=== PATIENT | male | born 1980 | race Caucasian/White ===

== ENCOUNTER → 2021-10-02 | Outpatient (CLI) | payer OTHER ==
--- NOTE | 2021-10-02 08:34 | Diagnostic Imaging Report ---
PROCEDURE: US Gallbladder. TECHNIQUE: Multiple real-time grayscale images were obtained over the right upper quadrant in various projections. INDICATION: Right upper quadrant pain The liver, gallbladder and bile ducts are normal. Pancreas is obscured by bowel gas. No abnormality of the aorta or IVC is seen. Right kidney is normal. There is no ascites. IMPRESSION: No acute abnormality is seen. Dictated by: Dictated on workstation # [id number]
== END ==
LOC: RAD 08:00
PROVIDERS: ATTEND Family Medicine
DX: R10.11 Right upper quadrant pain (principal)
CPT/HCPCS: 76705

== ENCOUNTER 2022-03-11 08:37 | Emergency (ER) | payer OTHER ==
[~2022-03-11] VITALS: Ht 182 cm; Wt 117.0 kg
[2022-03-11 09:01] LABS: BASOPHILS # (AUTO) 0.1 10^3/uL (0.0-0.1); BASOPHILS % (AUTO) 1 % (0-10); EOSINOPHILS # (AUTO) 0.2 10^3/uL (0.0-0.3); EOSINOPHILS % (AUTO) 3 % (0-10); HEMATOCRIT 41 % (40-54); HEMOGLOBIN 14.7 g/dL (13.3-17.7); LYMPHOCYTES % (AUTO) 31 % (12-44); MEAN CORPUSCULAR HEMOGLOBIN 29 pg (25-34); MEAN CORPUSCULAR HGB CONC 36 g/dL (32-36); MEAN CORPUSCULAR VOLUME 81 fL (80-99); MEAN PLATELET VOLUME 9.6 fL (9.0-12.2); MONOCYTES # (AUTO) 0.5 10^3/uL (0.0-1.0); MONOCYTES % (AUTO) 8 % (0-12); NEUTROPHILS # (AUTO) 3.8 10^3/uL (1.8-7.8); NEUTROPHILS % (AUTO) 57 % (42-75); PLATELET COUNT 214 10^3/uL (130-400); WHITE BLOOD COUNT 6.6 10^3/uL (4.3-11.0)
[2022-03-11 09:10] LABS: ALBUMIN 4.4 GM/DL (3.2-4.5)
[2022-03-11 09:11] LABS: POTASSIUM 4.2 MMOL/L (3.6-5.0)
[2022-03-11 09:12] LABS: CALCIUM 9.4 MG/DL (8.5-10.1)
[2022-03-11 09:13] LABS: TOTAL PROTEIN 7.2 GM/DL (6.4-8.2)
[2022-03-11 09:14] LABS: INR 0.9 (0.8-1.4); PROTHROMBIN TIME PATIENT 12.7 SEC (12.2-14.7)
[2022-03-11 09:15] LABS: BILIRUBIN,TOTAL 0.5 MG/DL (0.1-1.0)
[2022-03-11 09:17] LABS: CREATININE SERUM 0.87 MG/DL (0.60-1.30)
[2022-03-11 09:20] LABS: MAGNESIUM 2.1 MG/DL (1.6-2.4)
--- NOTE | 2022-03-11 09:26 | Diagnostic Imaging Report ---
INDICATION: Left-sided chest pain. FINDINGS: Single view of the chest demonstrates clear lungs bilaterally. The heart is normal. There is no pneumothorax but osseous structures normal. IMPRESSION: Negative chest. Dictated by: Dictated on workstation # [id number]
[2022-03-11] MEDS ORDERED: KETOROLAC 30 MG/ML VIAL IVP ONE (09:30)
[2022-03-11] MEDS ORDERED: ASPIRIN 81 MG CHEW (CHILDREN'S ASA) PO ONE (09:30)
--- NOTE | 2022-03-11 09:41 | ED Chest Pain ---
General Chief Complaint: Chest Pain Stated Complaint: L SIDE PAIN / CHEST PAIN Nursing Triage Note: ARRIVED VIA AMB TO ROOM 06 WITH COMPLAINTS OF OFF AND ON LEFT SIDED CHEST PAIN STARTING AT 1800 YESTERDAY. Source: patient Exam Limitations: no limitations History of Present Illness Date Seen by Provider: March 11, 2022 Time Seen by Provider: 08:49 Initial Comments This 42-year-old gentleman presents to the emergency room with complaints of multiple episodes of chest pain that starts as a sharp pain in the left axilla and radiates around through the pectoralis region toward the center of his chest. He also has noted a tight feeling in his left lateral posterior neck. He recently kayak several miles and then also hit and threw baseballs for youth baseball practice. He first noticed the pain last night about 1800 when he was lifting a bucket of balls out of the vehicle. Pain lasted less than a minute and was rated as a 7 or 8. He had a second episode last night while sitting on the couch around 2100. Pain resolved and he went to bed. He had a third episode of similar pain while sitting at his desk at work this morning at approximately 0 800. He denies any chest or axilla pain at this time. He complains of a very minimal discomfort in the left lateral posterior neck. He denies any associated symptoms such as shortness of breath, lightheadedness, fever, cough, diaphoresis, nausea, etc. He has no known history of heart disease. He does have risk factors including hypertension, sleep apnea, obesity, former smoking history (10 years ago), and a family history. His primary care provider is Dr. FUENTES who referred him to the ER. He also reports some intermittent issues with right upper quadrant pain. He had a gallbladder ultrasound in September 2021 that was unremarkable. This pain does not seem to be contributing to the issues bringing him to the ER today. Allergies and Home Medications Allergies Coded Allergies: silicone (Verified Adverse Reaction, Mild, Rash, 03/11/22) Skin sensitivity to silicon on CPAP mask Patient Home Medication List Home Medication List Reviewed: Yes Review of Systems Review of Systems Constitutional: no symptoms reported EENTM: No Symptoms Reported Respiratory: No Symptoms Reported Cardiovascular: See HPI Gastrointestinal: See HPI Genitourinary: No Symptoms Reported Musculoskeletal: no symptoms reported Skin: no symptoms reported Psychiatric/Neurological: No Symptoms Reported Endocrine: No Symptoms Reported Hematologic/Lymphatic: No Symptoms Reported Past Babnmhy-Tjxlfr-Pglpsi Hx Patient Social History Tobacco Use?: No Smoking Status: Former Smoker Smokeless Tobacco Frequency: Former User Substance use?: No Alcohol Use?: Yes Alcohol Frequency: Once in a while Immunizations Up To Date Second COVID19 Vaccination Black: UNKNOWN COVID19 Vaccine Apiculturist: NICK Past Medical History Surgeries: Yes (Humphrey teeth) Respiratory: Yes Sleep Apnea Cardiac: Yes Hypertension Neurological: No Genitourinary: No Gastrointestinal: Yes (Chronic right upper quadrant abdominal pain) Musculoskeletal: No Endocrine: No HEENT: No Cancer: No Psychosocial: No Integumentary: No Family Medical History Reviewed and Corrections made Heart Disease, CAD Under 55 Years Old Physical Exam Vital Signs Vital Signs - First Documented 03/11/22 08:37 Temp 36.3 Pulse 72 Resp 16 B/P (MAP) 134/75 (94) Pulse Ox 96 O2 Delivery Room Air Capillary Refill : Less Than 3 Seconds Height, Weight, BMI Height: '" Weight: lbs. oz. kg; 35.00 BMI Method: General Appearance: No Apparent Distress, WD/WN, Obese HEENT: PERRL/EOMI, Normal ENT Inspection Neck: Normal Inspection; No JVD Respiratory: Lungs Clear, Normal Breath Sounds, No Accessory Muscle Use, No Respiratory Distress Cardiovascular: Regular Rate, Rhythm, No Edema, No Murmur Gastrointestinal: Normal Bowel Sounds, Non Tender, Soft; No Distended Extremity: Normal Inspection, Non Tender, No Calf Tenderness, No Pedal Edema Neurologic/Psychiatric: Alert, Oriented x3, No Motor/Sensory Deficits, Normal Mood/Affect Skin: Normal Color, Warm/Dry Progress/Results/Core Measures Results/Orders Lab Results Laboratory Tests Test 03/11/22 08:57 03/11/22 11:58 Range/Units White Blood Count 6.6 4.3-11.0 10^3/uL Red Blood Count 5.13 4.30-5.52 10^6/uL Hemoglobin 14.7 13.3-17.7 g/dL Hematocrit 41 40-54 % Mean Corpuscular Volume 81 80-99 fL Mean Corpuscular Hemoglobin 29 25-34 pg Mean Corpuscular Hemoglobin Concent 36 32-36 g/dL Red Cell Distribution Width 12.2 10.0-14.5 % Platelet Count 214 130-400 10^3/uL Mean Platelet Volume 9.6 9.0-12.2 fL Immature Granulocyte % (Auto) 0 % Neutrophils (%) (Auto) 57 42-75 % Lymphocytes (%) (Auto) 31 12-44 % Monocytes (%) (Auto) 8 0-12 % Eosinophils (%) (Auto) 3 0-10 % Basophils (%) (Auto) 1 0-10 % Neutrophils # (Auto) 3.8 1.8-7.8 10^3/uL Lymphocytes # (Auto) 2.0 1.0-4.0 10^3/uL Monocytes # (Auto) 0.5 0.0-1.0 10^3/uL Eosinophils # (Auto) 0.2 0.0-0.3 10^3/uL Basophils # (Auto) 0.1 0.0-0.1 10^3/uL Immature Granulocyte # (Auto) 0.0 0.0-0.1 10^3/uL Erythrocyte Sedimentation Rate 8 0-15 MM/HR Prothrombin Time 12.7 12.2-14.7 SEC INR Comment 0.9 0.8-1.4 Activated Partial Thromboplast Time 27 24-35 SEC Sodium Level 138 135-145 MMOL/L Potassium Level 4.2 3.6-5.0 MMOL/L Chloride Level 103 98-107 MMOL/L Carbon Dioxide Level 25 21-32 MMOL/L Anion Gap 10 5-14 MMOL/L Blood Urea Nitrogen 16 7-18 MG/DL Creatinine 0.87 0.60-1.30 MG/DL Estimat Glomerular Filtration Rate 110 BUN/Creatinine Ratio 18 Glucose Level 102 70-105 MG/DL Calcium Level 9.4 8.5-10.1 MG/DL Corrected Calcium 9.1 8.5-10.1 MG/DL Magnesium Level 2.1 1.6-2.4 MG/DL Total Bilirubin 0.5 0.1-1.0 MG/DL Aspartate Amino Transf (AST/SGOT) 20 5-34 U/L Alanine Aminotransferase (ALT/SGPT) 29 0-55 U/L Alkaline Phosphatase 58 40-136 U/L Myoglobin 31.1 10.0-92.0 NG/ML Troponin I < 0.028 < 0.028 <0.028 NG/ML C-Reactive Protein High Sensitivity 0.74 H 0.00-0.50 MG/DL Total Protein 7.2 6.4-8.2 GM/DL Albumin 4.4 3.2-4.5 GM/DL My Orders Orders - ALANIS WATT MD Ekg Tracing (03/11/22 08:42) Cbc With Automated Diff (03/11/22 08:48) Magnesium (03/11/22 08:48) Chest 1 View, Ap/Pa Only (03/11/22 08:48) Ekg Tracing (03/11/22 08:48) Comprehensive Metabolic Panel (03/11/22 08:48) Myoglobin Serum (03/11/22 08:48) Protime With Inr (03/11/22 08:48) Partial Thromboplastin Time (03/11/22 08:48) O2 (03/11/22 08:48) Monitor-Rhythm Ecg Trace Only (03/11/22 08:48) Ed Iv/Invasive Line Start (03/11/22 08:48) Troponin I Bryan (03/11/22 08:48) Ekg Tracing (03/11/22 09:26) Troponin I Bryan (03/11/22 12:00) Ketorolac Injection (Toradol Injection) (03/11/22 09:30) Aspirin Chewable Tablet (Baby Aspirin Ch (03/11/22 09:30) Hs C Reactive Protein (03/11/22 09:30) Erythrocyte Sedimentation Rate (03/11/22 09:30) Medications Given in ED Current Medications Medications Dose Ordered Sig/Brian Route Start Time Stop Time Status Last Admin Dose Admin Aspirin 324 mg ONCE ONCE PO 03/11/22 09:30 03/11/22 09:31 DC 03/11/22 09:44 324 MG Vital Signs/I&O 03/11/22 03/11/22 08:37 13:10 Temp 36.3 Pulse 72 68 Resp 16 16 B/P (MAP) 134/75 (94) 138/88 Pulse Ox 96 98 O2 Delivery Room Air Room Air Blood Pressure Mean: 94 Progress Progress Note #1: Time: 09:49 Progress Note Patient was seen and evaluated shortly after arrival. He was not experiencing active chest pain at that time. He had a minimal discomfort in the left lateral posterior neck. There is no tenderness of the neck or chest on exam. Skin was unremarkable with no rashes. He was given aspirin. He declined Toradol. Initial work-up was unremarkable. He had some subtle nondiagnostic ST changes on the EKG which were consistent and unchanged on repeat. CRP and ESR are pending. Repeat troponin at noon will be obtained for cardiac rule out. Progress Note #2: Progress Note Patient remained pain-free and 4-hour delta troponin was negative. Patient was advised to continue his cardiac evaluation on an outpatient basis and seek referral to a financial officer. Return precautions were discussed. See discharge instructions for further discussion. Initial ECG Impression Date: March 11, 2022 Initial ECG Impression Time: 08:49 Initial ECG Rate: 73 Initial ECG Rhythm: Normal Sinus Initial ECG Intervals: Normal Comment Normal sinus rhythm with subtle nonspecific ST changes. ST elevation does not meet criteria for STEMI. No ST depression. No abnormal intervals or axis deviation. EKG : EKG Time: 09:37 Rate: 68 Rhythm: Normal Sinus Intervals: Normal ECG Impression: Normal Comment Normal sinus rhythm with no diagnostic ST elevation. There are subtle ST changes unchanged from prior. No ST depression. No abnormal intervals or axis deviation. This EKG represents no significant change from prior. Diagnostic Imaging Diagonstic Imaging: Xray Plain Films/CT/US/NM/MRI: chest Comments Chest x-ray viewed by me and preliminary report reviewed. See report below: NAME: ROSA ELLINGTON [facility] REC#: [id number] PT STATUS: REG ER : 1980 PHYSICIAN: ALANIS WATT MD ADMIT DATE: 03/11/22/ER Draft Date of Exam:03/11/22 CHEST 1 VIEW, AP/PA ONLY INDICATION: Left-sided chest pain. FINDINGS: Single view of the chest demonstrates clear lungs bilaterally. The heart is normal. There is no pneumothorax but osseous structures normal. IMPRESSION: Negative chest. Dictated on workstation # [id number] Dict: 03/11/22922 Trans: 03/11/22924 [id number] Interpreted by: MONICA JIMENEZ Departure Impression Primary Impression: Atypical chest pain Disposition: 01 HOME, SELF-CARE Condition: Stable Departure-Patient Inst. Decision time for Depature: 13:01 Referrals: SANTOS KAPLAN [facility] KIM PUENTES MD, JACQUELINE S DO (PCP/Family) Primary Care Physician CHARLOTTE DAVIS JR, MD Patient Instructions: Chest Pain Add. Discharge Instructions: The exact cause of your chest pain is uncertain at this time. Although your heart and lung work-up was normal in the emergency room, coronary artery disease cannot be completely ruled out as a cause of your pain from your ER work-up. Please follow-up with your primary care provider and seek consultation with a financial officer for further evaluation. Take aspirin 81 mg daily until otherwise instructed. If pain returns, stop and rest. Avoid any activities that are known to trigger your pain. You may use ibuprofen and/or Tylenol (acetaminophen) to treat your pain. If you have pain that is recurrent despite Tylenol and ibuprofen use or pain that lasts longer than a few minutes, please return to the ER for further evaluation. Maintain a healthy lifestyle with a focus on a healthy well-balanced diet, light exercise, weight reduction, adequate sleep, etc. Avoid strenuous activity until you are cleared by your doctor or a financial officer. Call with questions or concerns. Return to the ER if you have any other urgent problems or concerns. A list of financial officer is provided below for your convenience. All discharge instructions reviewed with patient and/or family. Voiced understanding. Work/School Note: Work Release Form Date Seen in the Emergency Department: March 11, 2022 Return to Work: March 12, 2022 Restrictions: No Restrictions Copy Copies To 1: WOODY FUENTES JOSHUA T MD March 11, 2022 09:41
[2022-03-11 13:10] VITALS: BP 138/88
== END 2022-03-11 13:10 | disposition home or self-care (01) ==
LOC: EDUNIT# 08:37 → ER 08:38
DX: R07.89 Other chest pain (principal); Z87.891 Personal history of nicotine dependence
CPT/HCPCS: 36415; 71045; 80053; 83735; 83874; 84484; 85025; 85610; 85652; 85730; 86141; 93005; 93041

== ENCOUNTER → 2022-03-24 | Outpatient (CLI) | payer OTHER ==
[2022-03-24 13:39] VITALS: BP 131/76
--- NOTE | 2022-03-24 14:26 | Cardiology Stress Test Report ---
Stress Test Report Date of Procedure/Referring: Date of Procedure: Mar 24, 2022 PCP Carla Hackett DO Admitting Physician Admitting Physician: Attending Physician: Vinh Mendez MD Indications: CP Baseline Heart Rate: 73 Baseline Blood Pressure: Blood Pressure Systolic: 131 Blood Pressure Diastolic: 76 Baseline EKG: Baseline EKG: NSR Summary/Conclusion: Summary: In summary, the patient started exercising with a baseline heart rate, blood pressure and EKG mentioned above Patient was able to exercise for a total of 10 minutes on Alexandre protocol, METs 11.7 Maximum heart rate 160 Maximum blood pressure 184/66 Stress EKG, Minimal nondiagnostic changes Recovery EKG , Return to baseline Conclusion: 1. Good exercise tolerance for a total of 10 minutes on Alexandre protocol, 11.7 METs, achieving 89 percent of maximum expected heart rate 2. Minimal nondiagnostic EKG changes with exercise returned to baseline during recovery 3. No arrhythmia was noted Copy Copies To 1: CARLA HACKETT BASHAR J MD Mar 24, 2022 14:26
== END ==
LOC: CARD 13:00
PROVIDERS: ATTEND Internal Medicine Cardiovascular Disease
DX: I11.9 Hypertensive heart disease without heart failure (principal)
CPT/HCPCS: 93017; 93306